=== PATIENT | female | born 1935 | race African-American/Black ===

== ENCOUNTER 2018-02-28 06:50 | Emergency (ER) | payer OTHER ==
[~2018-02-28] VITALS: Ht 160 cm; Wt 46.3 kg
--- NOTE | ~2018-02-28 | EKG ---
[place] [address] [facility] [place] [address] ELECTROCARDIOGRAM REPORT Name: JOSÉ SEALS Room #: 170-6 ADM IN .R.#: [id number] Admission: 02/28/18 Attend Phys: Douglas Chamberlain MD Discharge: Date of : 39 Report #: [id number] THIS REPORT FOR: //name// [facility] ED Test Date: 2018-02-28 Test Time: 07:06:59 Pat Name: JOSÉ SEALS Department: Room: Gender: F [employer]: levi diego : 1935 Requested By: Stephen Bolanos Order Number: [id number] MD: Dimas Morris Measurements Intervals [place] Rate: 72 P: [place]: QRS: 35 QRSD: 132 T: 45 QT: 388 QTc: 425 Interpretive Statements Sinus rhythm Poor R wave progression No previous ECG available for comparison Electronically Signed On 02-28-2018 8:46:32 CDT by Dimas Morris [email or web address] <ELECTRONICALLY SIGNED> By: Dimas Morris MD, [facility] 02/28/18 [id number] Dimas Morris MD, [facility] /EPI
[2018-02-28 06:51] VITALS: BP 133/80
[2018-02-28 07:10] LABS: ABSOLUTE NEUTROPHILS 4.2 thou/uL (1.4-8.2); BASOPHILS 1.3 % (0.0-2.0); EOSINOPHILS 0.9 % (0.0-3.0); HEMATOCRIT 37.6 % (37.0-47.0); HEMOGLOBIN 12.8 gm/dL (12.0-15.0); LYMPHOCYTES 22.3 % (24.0-44.0); MCH 33.9 pg (26.0-34.0); MCV 99.7 fL (80.0-100.0); MONOCYTES 7.3 % (1.0-8.0); PLATELET COUNT 349 thou/uL (150-400); POLYS 68.2 % (36.0-66.0); RBC 3.77 mil/uL (4.20-5.00); RDW 13.7 % (10.5-14.5); WBC 6.2 thou/uL (4.0-11.0)
[2018-02-28] MEDS ORDERED: HYDROXYZINE HCL25 M2 PO (07:18)
[2018-02-28] MEDS ORDERED: ATIVAN0.5 MG PO (07:18)
[2018-02-28] MEDS ORDERED: TYLENOL325 MG PO (07:18)
[2018-02-28 07:19] LABS: ANION GAP 13 mmol/L (7-16); BUN 15 mg/dL (7-18); CALCIUM 8.6 mg/dL (8.5-10.1); CHLORIDE 105 mmol/L (98-107); CO2 26 mmol/L (21-32); CREATININE 1.1 mg/dL (0.6-1.0); GLUCOSE 82 mg/dL (74-106); SODIUM 144 mmol/L (136-145)
[2018-02-28] MEDS ORDERED: HYDROCODONE CO120 ML PO (07:19)
[2018-02-28] MEDS ORDERED: DEPAKENE250 MG/5 M PO (07:20)
[2018-02-28] MEDS ORDERED: PHENAZOPYRIDIN200 M2 PO (07:20)
[2018-02-28 07:21] LABS: POTASSIUM 2.9 mmol/L (3.5-5.1)
[2018-02-28 07:28] LABS: ALBUMIN 3.1 g/dL (3.4-5.0); SGOT 19 U/L (15-37); SGPT 18 U/L (30-65); TOTAL BILIRUBIN 0.4 mg/dL (<0.1-1.0); TOTAL PROTEIN 7.6 g/dL (6.4-8.2); TROPONIN-I <0.06 ng/mL (<0.06)
[2018-02-28 07:43] LABS: URINE BILIRUBIN NEGATIVE (Negative); URINE BLOOD NEGATIVE (Negative); URINE COLOR YELLOW; URINE GLUCOSE-RANDOM* NEGATIVE (Negative); URINE KETONES NEGATIVE (Negative); URINE LEUKOCYTES-REFLEX NEGATIVE (Negative); URINE PROTEIN (DIPSTICK) 1+ (Negative); URINE UROBILINOGEN 0.2 E.U./dl (0.2-1.0)
[2018-02-28 07:44] LABS: URINE NITRITE-REFLEX POSITIVE (Negative)
[2018-02-28 07:45] LABS: URINE CLARITY HAZY
[2018-02-28 08:00] LABS: CASTS None Seen /LPF (None Seen); CRYSTALS None Seen /LPF (None Seen); SQUAMOUS 4-10 Moderate /LPF (0-3)
[2018-02-28 08:01] LABS: BACTERIA-REFLEX >30 Many /HPF (None Seen); URINE RBC None Seen /HPF (0-2); URINE WBC-REFLEX 6-15 Few /HPF (0-5)
[2018-02-28 08:52] VITALS: BP 144/96
[2018-02-28] MEDS ORDERED: KEFLEX500 M1 PO (10:00)
[2018-02-28 11:46] VITALS: BP 151/86
== END 2018-02-28 11:46 ==
LOC: ER 06:50 → EROBS 07:53 → ER 11:46
PROVIDERS: Emergency Medicine
DX: E87.6 Hypokalemia (principal); R56.9 Unspecified convulsions; N39.0 Urinary tract infection, site not specified; F03.90 Unspecified dementia, unspecified severity, without behavioral disturbance, psychotic disturbance, mood disturbance, and anxiety